=== PATIENT | female | born 1965 | race Caucasian/White ===

== ENCOUNTER → 2019-08-28 | Outpatient (CLI) | payer BC, OTHER ==
[~2019-08-28] VITALS: Ht 165.1 cm; Wt 61.2 kg
[~2019-08-28] MED LIST: ACETAZOLAMIDE250 M1; AMBIEN 10 MG TA10 MG PO; CARBAMAZEPINE100 M2 PO; FAMOTIDINE 40 M40 M1 PO; MELOXICAM15 MG PO; SPIRONOLACT/HCT1 TA1 PO; TIZANIDINE HCL2 M1 PO; XANAX 0.25 MG0.25 MG PO
--- NOTE | ~2019-08-28 | HPC ---
[facility] [address] [place] [address] PAIN MANAGEMENT CONSULTATION Name: ANDERSON JON Room #: REG MISTY Ian.#: [id number] Admission: 08/28/19 Attend Phys: Yobani Perales DO Discharge: Date of : 63 Report #: [id number] THIS REPORT FOR: //name// CC: Yobani Perales Physician staff CHIDI RAMIREZ DATE OF SERVICE: 08/28/2019 REFERRING PHYSICIAN: Chidi Mcdonald MD CHIEF COMPLAINT: Neck pain, right upper extremity pain with paresthesias. HISTORY OF PRESENT ILLNESS: As you know, the patient is a very pleasant 53-year-old female referred to our service for longstanding history of right neck pain, right upper extremity pain with paresthesias. The patient sought evaluation through Orthopedics as she thought her symptoms were related to a shoulder that she had surgery on in the past for a rotator cuff injury. It was determined that the shoulder was likely not the source of her symptoms and she was subsequently referred to orthopedics spine surgeon, Dr. Dayan Amador with [facility] Orthoped[facility] services. The patient was being evaluated for cervical radiculopathy, underwent a cervical MRI. The findings were such, the patient was then referred to our clinic to discuss options for treatment. She indicates that she has tried conservative treatment options including medication management with [id number] medications initially. She has undergone physical therapy, stretching exercise, core strengthening and traction techniques, which provided only transient improvement in symptoms. She states her pain today is constant without current medications for which she takes meloxicam and tizanidine. She describes the pain as burning, cramping, aching, stabbing, tender, numbness and tingling. She places current pain score 5/10, daily average of 5/10, worst pain has been is 10/10. The patient states that looking down using her right upper extremity or rotating to the right with her neck exacerbates symptoms. Ice temporarily alleviates some of the neck pain. Meloxicam tends to help with some of the pain she is experiencing, as does the muscle relaxant, but they do not provide long-term benefit. She has been referred to our service to discuss treatment options for suspected cervical radiculopathy. PAST MEDICAL HISTORY: 1. Seizures. 2. Gastroesophageal reflux disease. 3. Anxiety disorder. 4. Hypertension. 5. [place] [address] PAIN MANAGEMENT CONSULTATION Name: ANDERSON JON Room #: REG CLJulian Davidson#: [id number] Admission: 08/28/19 Attend Phys: Yobani Perales DO Discharge: Date of : 63 Report #: [id number] PAST SURGICAL HISTORY: 1. Right shoulder surgery, 05/2013. 2. Hysterectomy, 05/2008. 3. section x2, 1985 and again in 1989. 4. Cholecystectomy, 03/2018. SOCIAL HISTORY: The patient denies tobacco, alcohol, IV or illicit drug use. She has been out of work force for nearly 6 years. She is taking care of her granddaughter. She is unaccompanied at today's visit. She is not receiving disability income. She is not in litigation in regards to pain. REVIEW OF SYSTEMS: Positive for wearing corrective eyewear, seizure activity, numbness and tingling sensations involving the right upper extremity. All other review of systems negative per 12-point review of systems other than those listed in history of present illness. Pain impact score 4 of 70 indicating mild interference of daily activities secondary to pain. ALLERGIES: No reported drug allergies. CURRENT MEDICATIONS: Ambien 10 mg p.o. at bedtime, acetazolamide 200 mg once a day, carbamazepine 200 mg p.o. at bedtime, famotidine 40 mg p.o. at bedtime, meloxicam 15 mg in the morning, tizanidine 2 mg p.o. at bedtime p.r.n., Xanax 0.5 mg p.r.n. q. 8 hours, bioidentical hormone 1 tab p.o. at bedtime. IMAGING: MRI of the cervical spine obtained 08/05/2019 shows C2-C3 with a small left paracentral foraminal disk osteophyte complex, mild uncovertebral hypertrophy and facet arthropathy. No central canal stenosis. There is moderate left neural foraminal stenosis, thecal sac measuring 1.2 cm. C3-C4 shows mild anterolisthesis, mild right and moderate left neural foraminal stenosis, thecal sac measures 1.1 cm. C4-C5, mild anterolisthesis, mild uncovertebral hypertrophy, no central canal neural foraminal stenosis, thecal sac measures 9 mm. C5-C6 retrolisthesis, small osteophyte complex, mild uncovertebral and facet hypertrophy, mild central canal stenosis, moderate right neural foraminal stenosis, thecal sac measuring 8 mm. C6-C7, minimal disk osteophyte complex. No central canal stenosis, mild uncovertebral and facet arthropathy, central canal measuring 1.2 cm. C7-T1 intervertebral disk and foramen appear normal. Normal central canal. PHYSICAL EXAMINATION: VITAL SIGNS: Blood pressure 125/82, pulse 76, respiratory rate 14 and unlabored. The patient is 98% on room air. Height 5 feet 5 inches tall, weight 135 pounds, BMI calculated 22.5. GENERAL: Well-developed, well-nourished, well-hydrated 53-year-old female appearing her stated age, placing current pain score 5/10. HEENT: Normocephalic, atraumatic. Pupils equal, round, reactive to light. Extraocular muscles are intact. Sclerae nonicteric without injection. [facility] [address] [address] PAIN MANAGEMENT CONSULTATION Name: ANDERSON JON Room #: REG MISTY Stuart#: [id number] Admission: 08/28/19 Attend Phys: Yobani Perales DO Discharge: Date of : 63 Report #: [id number] NEUROLOGIC: Cranial nerves 2-12 grossly intact. Speech fluent. The patient deemed an excellent historian. LUNGS: Clear. No wheezes, rhonchi or rales. CARDIOVASCULAR: Regular. No appreciable gallop, no rub. ABDOMEN: Soft, nontender, nondistended, normal active bowel sounds. EXTREMITIES: Show no clubbing, no cyanosis, no edema. MUSCULOSKELETAL: Upper extremity strength appears equal and symmetrical 5/5. She is intact to light touch from C5 through T1 dermatomes. Deep reflexes are diminished, but equal bilaterally, biceps, brachioradialis and triceps. Muscle tone is equal and symmetrical. Muscle bulk is equal and symmetrical in the upper extremities. Spurling's test positive on the right, negative left. Cervical provocation testing noted with extension causes no change in overall pain. Lateral flexion and rotation to the right exacerbates symptoms and negative left. Forward flexion of the cervical spine causes increase in right neck and upper back pain. ASSESSMENT: 1. Cervical radiculopathy. 2. Displaced cervical intervertebral disk with radiculopathy. 3. Cervical spondylosis with radiculopathy. 4. Foraminal stenosis of the cervical spine. 5. Chronic intractable pain. PLAN: 1. Based on today's physical exam and the history the patient has provided, the description the patient uses in regards to pain as well as the distribution of symptoms, likely source of the patient's pain is cervical radiculopathy. We have reviewed the patient's MRI from 2015 and from 2019. It does appear that she is suffering from foraminal stenosis causing symptoms towards the right. We discussed with the patient treatment options to address cervical radiculopathy. The following was discussed with the patient today. 1. We discussed physical therapy, stretching exercises and traction techniques as an option for treatment. We discussed medication management, adding neuropathic pain medications to her currently existing nonsteroidal anti-inflammatory. We did advise the patient that muscle relaxants can be somewhat helpful, but have a sedated property and we would not recommend driving or operating heavy equipment while on that medication. We discussed cervical epidural injection under fluoroscopic guidance and ultimately surgical decompression. After reviewing the risks and benefits of all proposed treatment options, the patient chose to make preparations to undergo cervical epidural injection under fluoroscopic guidance. 2. The patient was advised due to third alliance party payer restrictions, authorization would have to be obtained before the patient could undergo a cervical epidural injection. We will begin this authorization process immediately and contact the patient once it has been completed. [address] [address] PAIN MANAGEMENT CONSULTATION Name: DONTRELLANDERSON E Room #: REG MISTY Davidson#: [id number] Admission: 08/28/19 Attend Phys: Yobani Perales DO Discharge: Date of : 63 Report #: [id number] 3. No medication changes made at today's visit. The patient will continue current medical therapy as prior prescribed. 4. We will see the patient back in followup visit once we have authorization for the patient to undergo a cervical epidural injection under fluoroscopic guidance. The patient was advised this could take anywhere from 4-7 working days. Once we have this authorization, we will have the patient return as quickly as possible. 5. We wish to thank Dr. Amador for the referral of this patient to our clinic. We will keep you apprised of her response to treatment as we address cervical radiculopathy. Again, we wish to thank you for the opportunity to see this patient in consultation. By: [id number] Yobani Perales DO /mihaela
[2019-08-28 13:23] VITALS: BP 125/82
--- NOTE | 2019-08-28 13:53 | NUR ---
Pain Clinic Assessment: 1. History of Osteoarthritis: R SHOULDER History of Rheumatoid Arthritis: Not Applicable 2. Height: 5 ft. 5 in. 165.1 cm. Weight: 135.0 lb. oz. 61.236 kg. Patient's BMI: 22.5 3. Vital Signs: BP: 125/82 Pulse: 76 Resp: 14 Temp: 02 Sat: 98 ECG Mon: 4. Pain Intensity: 5 5. Fall Risk: Dizziness: Needs help standing or walking: N Fallen in the last 3 months: N Fall risk comments: 6. Patient on Blood Thinner: None 7. History of Hypertension: N 8. Opioid Therapy greater than 6 weeks: N Opiate Contract Signed: 9. Risk Assessment Tool Provided: 6 10. Functional Assessment Tool: 11. Recreational Drug Use: Never Drug Type: Tobacco Use: Never Smoker Tobacco Type: Amount or Packs/day: How Many Years: Alcohol Use: No Frequency: Quant:
== END ==
LOC: PAIN 08-21 07:00
DX: M50.10 Cervical disc disorder with radiculopathy, unspecified cervical region (principal); M47.22 Other spondylosis with radiculopathy, cervical region; M48.02 Spinal stenosis, cervical region; K21.9 Gastro-esophageal reflux disease without esophagitis; I10 Essential (primary) hypertension; G47.00 Insomnia, unspecified; F41.9 Anxiety disorder, unspecified; Z90.710 Acquired absence of both cervix and uterus; Z90.49 Acquired absence of other specified parts of digestive tract; Z79.899 Other long term (current) drug therapy; Z79.891 Long term (current) use of opiate analgesic

== ENCOUNTER → 2019-09-04 | Outpatient (CLI) | payer BC, OTHER ==
[~2019-09-04] VITALS: Ht 165.1 cm; Wt 61.7 kg
[2019-09-04 13:04] VITALS: BP 117/84
--- NOTE | 2019-09-04 13:18 | NUR ---
Pain Clinic Assessment: 1. History of Osteoarthritis: R SHOULDER History of Rheumatoid Arthritis: Not Applicable 2. Height: 5 ft. 5 in. 165.1 cm. Weight: 136.0 lb. oz. 61.689 kg. Patient's BMI: 22.6 3. Vital Signs: BP: 117/84 Pulse: 96 Resp: 14 Temp: 02 Sat: 97 ECG Mon: 4. Pain Intensity: 2-3 5. Fall Risk: Dizziness: N Needs help standing or walking: N Fallen in the last 3 months: N Fall risk comments: 6. Patient on Blood Thinner: None 7. History of Hypertension: N 8. Opioid Therapy greater than 6 weeks: N Opiate Contract Signed: 9. Risk Assessment Tool Provided: 6 10. Functional Assessment Tool: 11. Recreational Drug Use: Never Drug Type: Tobacco Use: Never Smoker Tobacco Type: Amount or Packs/day: How Many Years: Alcohol Use: No Frequency: Quant:
--- NOTE | 2019-09-06 07:46 | HPC ---
[facility] [address] [place] [address] PAIN MANAGEMENT CONSULTATION Name: ANDERSON JON [id number] Admission: 09/04/19 Attend Phys: Yobani Perales DO Discharge: Date of : 63 Report #: [id number] THIS REPORT FOR: //name// CC: Yobani Perales Physician staff BOBBI MACEDO MD DATE OF SERVICE: 09/04/2019 CHIEF COMPLAINT: Neck pain, right upper extremity pain with paresthesias. HISTORY OF PRESENT ILLNESS: As you know, the patient is a very pleasant 53-year-old female who has returned today in followup visit to undergo the first in a series of cervical epidural injections under fluoroscopic guidance. We saw the patient on 08/28/2019 where she was diagnosed with cervical radiculopathy secondary to the displacement of a cervical intervertebral disk. We have obtained authorization for the patient to undergo the procedure requested today. She returns reporting a pain level of approximately 2-3/10. Pain begins in the right neck, radiates to the right shoulder and down into the hand. She denies any changes in medical history since our last visit. She has suffered no injury or trauma that led to symptom occurrence. She returns today for the first in a series of cervical epidural injections under fluoroscopic guidance. ALLERGIES: No known drug allergies. CURRENT MEDICATIONS: Ambien, acetazolamide, carbamazepine, famotidine, meloxicam, tizanidine, Xanax, bioidentical hormones. SOCIAL HISTORY: The patient denies tobacco, alcohol or IV illicit drug use. She has been out of work force for about 6 years. She is unaccompanied today. IMAGING: No new imaging available. PHYSICAL EXAMINATION: VITAL SIGNS: Blood pressure 117/84, pulse is 96, respiratory rate 14 and unlabored. The patient is 97% on room air. Height 5 feet 5 inches tall, weight 136 pounds, BMI calculated 22.6. GENERAL: Well-developed, well-nourished, well-hydrated 53-year-old female appearing stated age, pain is rated today at a 2-3/10. HEENT: Normocephalic, atraumatic. Pupils equal, round, reactive to light. Extraocular muscles are intact. NEUROLOGIC: Speech fluent. The patient deemed an excellent historian. EXTREMITIES: Show no clubbing, no cyanosis, and no edema. MUSCULOSKELETAL: Upper extremity strength appears equal and symmetrical again today 5/5, intact to light touch from C5-T1 dermatomes. Deep tendon reflexes [address] [address] PAIN MANAGEMENT CONSULTATION Name: ANDERSON JON Room #: REG [facility].#: [id number] Admission: 09/04/19 Attend Phys: Yobani Perales DO Discharge: Date of : 63 Report #: [id number] are diminished bilaterally, but symmetrical. Spurling test is remaining positive on right, negative on left. ASSESSMENT: 1. Cervical radiculopathy. 2. Displacement of cervical intervertebral disk with radiculopathy. 3. Cervical spondylosis with radiculopathy. 4. Foraminal stenosis of the cervical spine. 5. Chronic intractable pain. PLAN: 1. The patient returns today in followup visit having received authorization to undergo a cervical epidural injection under fluoroscopic guidance. The patient was advised the risks and benefits of a cervical epidural injection. These risks include but are not necessarily limited to bleeding, bruising, infection, worsening of pain, no relief of pain, also risk of temporary or permanent muscle weakness, temporary or permanent nerve damage, possible paralysis, post-dural puncture headache and . The patient states understood and wished to proceed. 2. No medication changes made at today's visit. The patient will continue current medical therapy as prior prescribed. 3. We will see the patient back in followup visit in 31 days. At that time, review the efficacy of today's epidural injection to determine if next in a series of epidural injections might be necessary. I have advised the patient if the injection does not provide good benefit contact our clinic and we will have her return to discuss other options for treatment. We are hopeful the patient will see good and prolonged benefit with today's epidural injection as her pathology would indicate this should improve her symptoms significantly. PROCEDURE NOTE DESCRIPTION OF PROCEDURE: C7-T1 cervical epidural steroid injection under fluoroscopic guidance. This is the first procedure of the first series that the patient is undergoing. After obtaining written consent, the patient was taken back to the fluoroscopy suite and placed in a prone position with separate pillows under chest and forehead to decrease cervical lordosis. The skin overlying the cervical area was prepped and draped in an aseptic fashion. The C7-T1 vertebral interspace was identified by AP fluoroscopy. The skin and subcutaneous tissue overlying the target site of injection was anesthetized using 3 mL of 1% lidocaine. A 20-gauge 3.5 inch Tuohy needle was advanced under fluoroscopic guidance toward the epidural space using a midline approach. The epidural space was identified using a loss of resistance to air technique. After negative aspiration for heme [address] [address] PAIN MANAGEMENT CONSULTATION Name: ANDERSON JON Room #: REG MISTY Davidson#: [id number] Admission: 09/04/19 Attend Phys: Yobani Perales DO Discharge: Date of : 63 Report #: [id number] or cerebrospinal fluid, a total of 1 mL of Omnipaque was injected. A cervical epidurogram was confirmed using AP and oblique fluoroscopy. After negative aspiration for heme or cerebrospinal fluid, 5 mL of a solution containing 2 mL 40 mg per mL, 80 mg total triamcinolone along with 3 mL lidocaine 1% was injected in increments. Contrast spread was noted from posterior epidural space. The needle was then retracted approximately nursing home and the needle track was flushed with 1 mL of 1% lidocaine. There were no apparent new sensory deficits in the upper extremities present following the procedure. A sterile bandage was placed over the injection site. The heart rate, pulse oximetry and blood pressure were continuously monitored after the procedure. There were no apparent complications. The patient tolerated the procedure well and was carefully escorted in the recovery room in stable condition. After meeting discharge criteria, the patient was discharged home. <ELECTRONICALLY SIGNED> By: Yobani Perales DO 09/06/19 [id number] Yobani Perales DO /nt
== END | disposition home or self-care (01) ==
LOC: PAIN 07:00
DX: M50.10 Cervical disc disorder with radiculopathy, unspecified cervical region (principal); M47.22 Other spondylosis with radiculopathy, cervical region; M48.02 Spinal stenosis, cervical region; G89.29 Other chronic pain; Z79.899 Other long term (current) drug therapy; Z98.890 Other specified postprocedural states